=== PATIENT | male | born 1975 | race Caucasian/White ===

== ENCOUNTER 2022-09-08 14:44 | Inpatient (IN) | payer MEDICAID, OTHER ==
[~2022-09-08] VITALS: Ht 170.2 cm; Wt 52.0 kg
[~2022-09-08 14:44] MED LIST: BENZ1I IM; [UNRECOGNIZED DRUG - OTHER] PO
[2022-09-08] MEDS ORDERED: DiphenhydrAMINE HCL 50 MG/ML VIAL IM ONE (15:45)
[2022-09-08] MEDS ORDERED: HALOPERIDOL LACTATE 5 MG/ML VIAL IM ONE (15:45)
[2022-09-08] MEDS ORDERED: LORazepam 2 MG/ML VIAL IM ONE (15:45)
[2022-09-08 16:22] LABS: BASOPHILS % (AUTO) 2.1 % (0.0-2.0); EOSINOPHILS % (AUTO) 6.5 % (1.0-6.0); HEMATOCRIT 38.5 % (41-53); LYMPHOCYTES # (AUTO) 1.7 K/uL (1.0-4.8); LYMPHOCYTES % (AUTO) 35.1 % (22.0-44.0); MEAN CORPUSCULAR HEMOGLOBIN 31.1 pg (26.0-34.0); MEAN CORPUSCULAR HGB CONC 33.7 G/dL (31.0-37.0); MEAN CORPUSCULAR VOLUME 92 fL (80-100); MONOCYTES # (AUTO) 0.4 K/uL (0.1-1.0); MONOCYTES % (AUTO) 7.4 % (2.0-9.0); NEUTROPHILS # (AUTO) 2.3 K/uL (1.8-7.7); NEUTROPHILS % (AUTO) 48.9 % (40.0-70.0); PLATELET COUNT (AUTO) 203 K/uL (150-450); RED BLOOD CELL COUNT(AUTO) 4.18 MIL/uL (4.50-5.90); RED CELL DISTRIBUTION WIDTH 13.3 % (11.5-14.5)
[2022-09-08] MEDS ORDERED: ZOLPIDEM TARTRATE 10 MG TABLET PO PRN (16:30)
[2022-09-08 16:32] LABS: ANION GAP 8 mmol/L (8-16); CALCIUM, TOTAL 8.7 mg/dL (8.8-10.5); CARBON DIOXIDE 25 mmol/L (22-29); CHLORIDE 106 mmol/L (98-107); CREATININE 0.81 mg/dL (0.60-1.30); GLOMERULAR FILTR. RATE CALC > 60 mL/min (>60); GLUCOSE,RANDOM 105 mg/dL (70-110); POTASSIUM 3.8 mmol/L (3.5-5.1); SODIUM SERUM 139 mmol/L (136-145)
[2022-09-08 16:39] LABS: ALANINE AMINOTRANSFERASE 30 U/L (12-78); ALBUMIN 3.8 g/dL (3.4-5.0); ALKALINE PHOSPHATASE 80 U/L (46-116); ASPARTATE AMINOTRANSFERASE 26 U/L (15-37); BILIRUBIN,TOTAL 0.3 mg/dL (0.1-1.0); TOTAL PROTEIN, SERUM 6.7 g/dL (6.4-8.2)
[2022-09-08 19:06] LABS: COVID AG,FIA SOURCE NASAL SWAB
[2022-09-09 00:22] LABS: APPEARANCE,URINE CLEAR (CLEAR); BILIRUBIN,URINE NEGATIVE (NEGATIVE); GLUCOSE, URINE (UA) NEGATIVE (NEGATIVE); KETONES,URINE NEGATIVE (NEGATIVE); LEUKOCYTE ESTERASE ,URINE NEGATIVE (NEGATIVE); NITRATE,URINE NEGATIVE (NEGATIVE); OCCULT BLOOD,URINE NEGATIVE (NEGATIVE); PROTEIN,URINE NEGATIVE (NEGATIVE); UROBILINOGEN,URINE <=1.0 mg/dL (<=1.0)
[2022-09-09 00:28] LABS: AMPHET/METH SCREEN,URINE POSITIVE (NEGATIVE); BARBITURATE SCREEN, URINE NEGATIVE (NEGATIVE); BENZODIAZEPINES SCREEN,URINE NEGATIVE (NEGATIVE); CANNABINOID SCREEN,URINE POSITIVE (NEGATIVE); COCAINE SCREEN,URINE NEGATIVE (NEGATIVE); METHADONE SCREEN, URINE NEGATIVE (NEGATIVE); OPIATE SCREEN,URINE NEGATIVE (NEGATIVE); PHENCYCLIDINE SCREEN,URINE NEGATIVE (NEGATIVE)
[2022-09-09] MEDS: LORazepam 2 MG TABLET PO PRN (11:34)
[2022-09-09] MEDS: HALOPERIDOL 5 MG TABLET PO PRN (11:34)
[2022-09-09 12:19] VITALS: BP 104/62
[2022-09-09 16:06] VITALS: BP 106/64
[2022-09-10] MEDS: LORazepam 2 MG TABLET PO PRN ×2 (07:31→16:00)
[2022-09-10] MEDS: HALOPERIDOL 5 MG TABLET PO PRN ×2 (07:31→16:00)
[2022-09-10 07:54] VITALS: BP 105/74
[2022-09-10 08:03] VITALS: BP 105/74
[2022-09-10] MEDS ORDERED: PALI234D IM (13:02)
[2022-09-10] MEDS ORDERED: QUET50TA24 PO (13:02)
[2022-09-10] MEDS: OLANZapine 10 MG TABLET PO SCH ×2 (13:06→16:00)
[2022-09-10] MEDS: BENZTROPINE MESYLATE 1 MG TABLET PO SCH (16:00)
[2022-09-10] MEDS: NICOTINE 7 MG/24 HOUR PATCH TD SCH (16:02)
[2022-09-10] MEDS ORDERED: IBUPROFEN 400 MG TABLET PO PRN (17:15)
[2022-09-10] MEDS ORDERED: MAG HYDROX/AL HYDROX/SIMETH ES 30 ML SUSPENSION UDCUP PO PRN (17:15)
[2022-09-10] MEDS ORDERED: PETROLATUM,WHITE 28 GM JELLY TP PRN (17:15)
[2022-09-10] MEDS ORDERED: DOCUSATE SODIUM 100 MG CAPSULE PO PRN (17:15)
[2022-09-10] MEDS ORDERED: NICOTINE 14 MG/24 HOUR PATCH TD PRN (17:15)
[2022-09-10] MEDS ORDERED: LOPERAMIDE HCL 2 MG CAPSULE PO PRN (17:15)
[2022-09-10] MEDS ORDERED: MAGNESIUM HYDROXIDE SUSPENSION 30 ML UDCUP PO PRN (17:15)
[2022-09-10] MEDS ORDERED: GuaiFENesin/D-METHORPHAN [SUGAR-FREE] 200-20MG/10 ML SYRUP UDCUP PO PRN (17:15)
[2022-09-10] MEDS ORDERED: ALBUTEROL SULFATE HFA 90 MCG/PUFF 8 GM INHALER IH PRN (17:15)
[2022-09-10] MEDS ORDERED: CloNIDine HCL 0.1 MG TABLET PO PRN (17:15)
[2022-09-10] MEDS ORDERED: ONDANSETRON HCL 4 MG TABLET PO PRN (17:15)
[2022-09-10] MEDS ORDERED: ACETAMINOPHEN 325 MG TABLET PO PRN (17:15)
[2022-09-10 20:19] VITALS: BP 102/62
[2022-09-11 09:06] VITALS: BP 100/60
[2022-09-11] MEDS: NICOTINE 7 MG/24 HOUR PATCH TD SCH (09:16)
[2022-09-11] MEDS: BENZTROPINE MESYLATE 1 MG TABLET PO SCH (09:16)
[2022-09-11] MEDS: OLANZapine 10 MG TABLET PO SCH (09:16)
[2022-09-11] MEDS: LORazepam 2 MG TABLET PO PRN (09:21)
[2022-09-11] MEDS ORDERED: OLAN10TA74 PO (10:54)
[2022-09-11] MEDS ORDERED: BENZ1TAB84 PO (10:57)
[2022-09-11] MEDS ORDERED: OLAN10 PO (16:38)
[2022-09-11] MEDS ORDERED: CLON0.1T2 PO (16:38)
== END 2022-09-11 11:45 | disposition left against medical advice (07) | DRG 750 ==
LOC: EMS 14:44 → B3A 09-09 09:32
PROVIDERS: ADMIT Psychiatry & Neurology Child & Adolescent Psychiatry; ATTEND Psychiatry & Neurology Child & Adolescent Psychiatry
DX: F20.0 Paranoid schizophrenia (principal); E44.0 Moderate protein-calorie malnutrition; Z20.822 Contact with and (suspected) exposure to COVID-19; Z68.1 Body mass index [BMI] 19.9 or less, adult; E83.51 Hypocalcemia; G47.00 Insomnia, unspecified; K59.00 Constipation, unspecified; D64.9 Anemia, unspecified; F15.10 Other stimulant abuse, uncomplicated; F14.10 Cocaine abuse, uncomplicated; Z87.891 Personal history of nicotine dependence
CPT/HCPCS: 80053; 80307; 81003; 85025; G0480; J1200; J1630; J2060